=== PATIENT | female | born 1990 | race Caucasian/White ===

== ENCOUNTER 2020-08-27 23:51 | Inpatient (IN) | payer SELFPAY ==
[2020-08-28] MEDS ORDERED: Azithromycin 500 MG in Sodium Chloride 0.9% 250 ML 250 ML IVPB SCH (02:00)
--- NOTE | 2020-08-28 02:58 | HP ---
REASON FOR ADMISSION: Shortness of breath. HISTORY OF PRESENT ILLNESS: This is a -wzbj-anz female patient, who was recently diagnosed with COVID-19 on August 22. She comes back reporting shortness of breath. In the emergency room, she was found to have a pulse ox of 90% on room air. Her chest x-ray did show multifocal pneumonia. She reports that her symptoms progressed rapidly over the past 24 hours. Currently, she is in the emergency room, appears to be tired but otherwise in no acute distress. Patient does not have any past medical history. SOCIAL HISTORY: She does not smoke. Does not drink alcohol. FAMILY HISTORY: Negative for premature coronary artery disease. ALLERGIES: NO NOTE OF ANY DRUG ALLERGY. REVIEW OF SYSTEMS: All systems reviewed, except for the above mentioned, found to be negative. PHYSICAL EXAMINATION: GENERAL: Awake, alert, and oriented, does not appear in distress. VITAL SIGNS: Her blood pressure is 100/61, pulse of 100, temperature is 98.6, and saturating 96% on 4 L nasal cannula. HEENT: Head is nontraumatic and normocephalic. Pupils equal, reactive. Extraocular movements are intact. Nonicteric sclerae. Well-injected conjunctivae. Oral mucosa normal. Nasal mucosa normal. NECK: Supple. No adenopathy. No murmur. Thyroid is not palpable. Trachea is midline. No supraclavicular adenopathy. HEART: S1, S2 regular. No murmur. No gallops. No friction rubs. No displacement of PMI. LUNGS: Poor inspiratory effort. No crackles. No wheezes. No rhonchi. ABDOMEN: Bowel sounds are positive. Nontender abdomen. No hepatosplenomegaly. EXTREMITIES: No lower extremity edema. No cyanosis. NEUROLOGIC: Cranial nerves 2 through 12 within normal limits. Normal motor function. Normal sensory function. LABORATORY DATA: Blood work shows WBC of 3, hemoglobin of 12.8, and platelets of 159. Sodium 138, potassium 3.3, and bicarb of 26. CT of the chest shows round ground-glass opacities scattered throughout the lungs bilaterally. Some lobar consolidation of the bilateral lower lobes. ASSESSMENT AND PLAN: This is a 29-year-old female patient presenting with increasing shortness of breath secondary to COVID-19 pneumonia, possibly superimposed bacterial pneumonia. Patient will be admitted to our COVID unit. She will be on IV Decadron. She already received a loading dose at the ER. We will also cover her with Rocephin and azithromycin for possible community-acquired pneumonia superimposed on COVID-19 pneumonia, she did receive IV fluids in the ER. We will continue to monitor her, recheck labs in the morning. For deep venous thrombosis prophylaxis, she will be on Lovenox subcutaneously and SCDs. Job ID: [id number]
[2020-08-28 04:37] VITALS: BMI 31.9
[2020-08-28 05:46] LABS: #Lymphocytes 0.6 thou/uL (1.20-3.40); #Monocytes 0.1 thou/uL (0.11-0.59); #Neutrophils 1.3 thou/uL (1.40-6.50); %Basophils 0.6 % (0.0-1.0); %Eosinophils 0.1 % (0.0-10.0); %Lymphocytes 31.3 % (21.0-51.0); %Monocytes 2.4 % (0.0-10.0); %Neutrophils 65.6 % (42.0-75.0); Hemoglobin 11.2 g/dL (12.0-16.0); Mean Corpuscular HGB CONC 32.8 g/dL (32.0-36.0); Mean Corpuscular Hemoglobin 27.7 pg (27.0-31.0); Mean Corpuscular Volume 84.3 fL (78.0-98.0); Mean Platelet Volume 6.9 fL (7.4-10.4); Platelet Count 160 thou/uL (130-400); RBC Distribution Width 13.7 % (11.5-14.5); Red Blood Cell (RBC) Count 4.03 mill/uL (4.20-5.40)
[2020-08-28 06:05] LABS: Anion Gap 13 mmol/L (10-20); BUN (Urea Nitrogen) 5 mg/dL (7.0-18.7); Calc. Creatinine Clearance 175 mL/min (70-130); Calcium 7.8 mg/dL (7.8-10.44); Carbon Dioxide 26 mmol/L (22-29); Chloride 104 mmol/L (98-107); Estimated GFR-MDRD Greater than 90; Glucose 187 mg/dL (70-105); Potassium 3.9 mmol/L (3.5-5.1); Sodium 139 mmol/L (136-145)
--- NOTE | 2020-08-28 08:48 | CT ---
PRELIMINARY REPORT/[facility]/EMERGENCY AFTER HOURS PROCEDURE: EXAM: CTA Chest with Intravenous Contrast CLINICAL HISTORY: DYSPNEA; sob and cough, recently diagnosed with covid-19 TECHNIQUE: Axial CTA images of the chest with intravenous contrast. Three-dimensional MIP/volume rendered reform ations were performed. CONTRAST: With; ISOVUE 370, 65ML COMPARISON: None provided. FINDINGS: PULMONARY ARTERIES There is no intraluminal filling defect suspicious for PE. AORTA No thoracic aortic aneurysm or dissection. LUNGS Round groundglass stenoses are scattered throughout the lungs bilaterally. Some lobar consolidation of the bilateral lower lobes. PLEURAL SPACES No pleural effusion. No pneumothorax. HEART AND MEDIASTINUM No cardiomegaly. No significant pericardial effusion. LYMPH NODES No lymphadenopathy. BONES No focal osseous abnormality or acute fracture. CHEST WALL AND UPPER ABDOMEN Images through the upper abdomen are unremarkable. The chest wall is unremarkable. IMPRESSION: No evidence of a pulmonary embolism. Scattered round groundglass densities throughout the bilateral lung with with sublobar consolidation in the bilateral lower lobes concerning for an infectious process. The findings may represent a Covi d 19 infection in the appropriate clinical setting. ELECTRONICALLY SIGNED BY: Chas Eaton MD Aug 28, 2020 1:20:39 AM PROFESSIONAL APPLICATION DESIGNER This report is intended for review by the ordering physician only, in accordance of law. If you recei ve this report in error, please call [facility] at [phone]. FINAL REPORT CT ANGIO CHEST PERFORMED WITH IV CONTRAST ENHANCEMENT WITH 3D RECONSTRUCTIONS: Date: 08/28/2020 HISTORY: Shortness of breath. COVID-positive. FINDINGS: Bilateral multifocal infiltrates are present with mainly peripheral ground-glass infiltrates in the u pper lobes. More dense consolidation in both lower lobes. No significant mediastinal, hilar, or axillary adenopathy. Pulmonary artery opacification is good. No CT evidence for pulmonary embolus. Visualized liver parenchyma is normal. IMPRESSION: 1. No CT evidence for pulmonary embolus. 2. Extensive multifocal infiltrates with areas of dense consolidation in the lung bases. This would be compatible with COVID pneumonia. Report in agreement with the preliminary report issued by [facility]. POS: [facility] [place]
[2020-08-28] MEDS ORDERED: Enoxaparin Sodium 40 MG/0.4 ML SYRINGE SC SCH (09:00)
[2020-08-28] MEDS: Dexamethasone Sod Phosphate 6 MG in Sodium Chloride 0.9% 50 ML IVPB SCH (09:05)
[2020-08-28] MEDS: Acetaminophen 325 MG TAB PO PRN ×3 (09:17→21:48)
[2020-08-28] MEDS: Guaifenesin DM 100-10/5 ML UDCUP PO PRN ×3 (09:18→21:47)
[2020-08-28] MEDS ORDERED: Iopamidol 370 76% 100 ML VIAL ONE (10:22)
--- NOTE | 2020-08-28 12:39 | PDOC.EVN ---
Event Note - Event Note Event Note: Patient seen and examined. Breathing easily with good O2 sats on 3LNC but significant SOB and some chest pain with ambulation. Due to rapid progression of symptoms over past 24 hours before admit, I did curbside Dr. Ortiz and he recommended adding Remdesivir and full dose Lovenox. I discussed starting Remdesivir with the patient and benefits vs. risks. She consented to try this treatment. Will also continue dexamethasone. Monitor closely.
[2020-08-28 13:44] LABS: ALT (SGPT) 11 U/L (8-55); AST (SGOT) 20 U/L (5-34); Albumin 3.4 g/dL (3.5-5.0); Alkaline Phosphatase 65 U/L (40-110); Bilirubin, Direct 0.1 mg/dL (0.1-0.3); Bilirubin, Total Less than 0.2 mg/dL (0.2-1.2); Protein, Total 6.7 g/dL (6.0-8.3)
[2020-08-28] MEDS ORDERED: REMDESIVIR (EUA) 200 MG in Sodium Chloride 0.9% 250 ML 210 ML IV SCH (14:00)
[2020-08-28] MEDS ORDERED: FLU VACC QS2020-21(6MOS UP)/PF 60 MCG/0.5 ML SYRINGE IM ONE (21:00)
[2020-08-28] MEDS ORDERED: Enoxaparin Sodium 80 MG/0.8 ML SYRINGE SC SCH (21:00)
[2020-08-28] MEDS: Enoxaparin Sodium 100 MG/ML SYRINGE SC SCH (21:46)
[2020-08-28] MEDS: cefTRIAXone\\ROCEPHIN 1 GM in Sodium Chloride 0.9% 100 ML IVPB SCH (21:47)
[2020-08-29] MEDS ORDERED: Azithromycin 500 MG in Sodium Chloride 0.9% 250 ML 250 ML IVPB SCH ×2 (02:00→21:00)
[2020-08-29] MEDS: Acetaminophen 325 MG TAB PO PRN ×5 (02:32→20:15)
[2020-08-29] MEDS: Guaifenesin DM 100-10/5 ML UDCUP PO PRN ×5 (02:32→20:15)
[2020-08-29] MEDS: Enoxaparin Sodium 100 MG/ML SYRINGE SC SCH ×2 (08:03→20:10)
--- NOTE | 2020-08-29 09:10 | PDOC.HOSPP ---
- Subjective Encounter Date: 08/29/20 Encounter Time: 11:00 Subjective: Patient feeling fatigued. SOB when get up and move around, ok at rest. Fever to 100.8 this AM. - Objective Vital Signs & Weight: Vital Signs (12 hours) Temp Pulse Resp BP Pulse Ox 08/29/20 08:00 100.2 F H 98 18 98/65 94 L Weight Weight 204 lb I&O: 08/28/20 08/29/20 08/30/20 06:59 06:59 06:59 Intake Total 300 400 Balance 300 400 Result Diagrams: 08/28/20 05:36 08/28/20 05:36 Hospitalist ROS - Review of Systems Constitutional: reports: fever. denies: chills Respiratory: reports: cough, SOB with excertion. denies: shortness of breath Cardiovascular: denies: chest pain, palpitations Gastrointestinal: denies: nausea, vomiting, abdominal pain - Medication Medications: Active Medications Generic Name Dose Route Start Last Admin Trade Name Freq PRN Reason Stop Dose Admin Acetaminophen 650 mg 08/28/20 02:28 08/29/20 08:03 Acetaminophen 325 Mg Tab PO 650 mg Q4H PRN Administration Headache/Fever/Mild Pain (1-3) Enoxaparin Sodium 90 mg 08/28/20 21:00 08/29/20 08:03 Enoxaparin Sodium 100 Mg/Ml Syringe SC 90 mg 0900,2100 MARV Administration Guaifenesin/Dextromethorphan 5 ml 08/28/20 05:25 08/29/20 08:04 Guaifenesin Dm 100-10/5 Ml Udcup PO 5 ml Q4H PRN Administration Cough Ceftriaxone Sodium 1 gm/ 100 mls @ 200 mls/hr 08/28/20 21:00 08/28/20 21:47 Sodium Chloride IVPB 100 mls Q24HR MARV Administration Azithromycin 500 mg/ Sodium 250 mls @ 250 mls/hr 08/29/20 02:00 08/29/20 01:43 Chloride IVPB 250 mls Q24HR MARV Administration Dexamethasone Sodium Phosphate 51.5 mls @ 101.756 mls/hr 08/28/20 09:00 08/28/20 09:05 6 mg/ Sodium Chloride IVPB 51.5 mls DAILY MARV Administration - Exam General Appearance: NAD, awake alert ENT: moist mucosa Heart: RRR, no murmur, no gallops, no rubs Respiratory: no wheezes, no rales, no ronchi, no tachypnea Gastrointestinal: soft, non-tender, non-distended, normal bowel sounds Psychiatric: normal affect, normal behavior, A&O x 3 Hosp A/P (1) Pneumonia due to COVID-19 virus Code(s): U07.1 - COVID-19; J12.89 - OTHER VIRAL PNEUMONIA Status: Acute (2) Acute respiratory failure with hypoxia Code(s): J96.01 - ACUTE RESPIRATORY FAILURE WITH HYPOXIA Status: Acute - Plan Patient with Covid-19 pneumonia. Diagnosed one week ago, with worsened symptoms over 24 hour before admission. Now requiring 2-3L NC O2 and dyspnea with exertion. On Rocephin, Azithromycin, and Dexamethasone since 08/28/2020. Curbsided Dr. Ortiz and started Remdesivir and full dose Lovenox. DVT proph: Lovenox GI Proph: Pepcid BID
[2020-08-29] MEDS: Dexamethasone Sod Phosphate 6 MG in Sodium Chloride 0.9% 50 ML IVPB SCH (09:29)
[2020-08-29] MEDS: REMDESIVIR (EUA) 100 MG in Sodium Chloride 0.9% 250 ML 230 ML IV SCH (15:34)
[2020-08-29] MEDS: cefTRIAXone\\ROCEPHIN 1 GM in Sodium Chloride 0.9% 100 ML IVPB SCH (20:09)
[2020-08-29] MEDS: Famotidine 20 MG TAB PO SCH (20:10)
[2020-08-30] MEDS: Acetaminophen 325 MG TAB PO PRN ×2 (03:25→20:10)
[2020-08-30] MEDS: Guaifenesin DM 100-10/5 ML UDCUP PO PRN ×3 (03:26→20:09)
[2020-08-30 05:24] LABS: #Lymphocytes 1.8 thou/uL (1.20-3.40); #Monocytes 0.6 thou/uL (0.11-0.59); %Eosinophils 0.1 % (0.0-10.0); %Lymphocytes 28.1 % (21.0-51.0); %Monocytes 9.2 % (0.0-10.0); %Neutrophils 62.6 % (42.0-75.0); Hemoglobin 11.1 g/dL (12.0-16.0); Mean Corpuscular HGB CONC 32.7 g/dL (32.0-36.0); Mean Corpuscular Hemoglobin 27.8 pg (27.0-31.0); Mean Platelet Volume 6.9 fL (7.4-10.4); Platelet Count 246 thou/uL (130-400); Red Blood Cell (RBC) Count 3.99 mill/uL (4.20-5.40); White Blood Cell (WBC) Count 6.4 thou/uL (4.8-10.8)
[2020-08-30 05:45] LABS: Anion Gap 12 mmol/L (10-20); BUN (Urea Nitrogen) 12 mg/dL (7.0-18.7); Calc. Creatinine Clearance 207 mL/min (70-130); Calcium 7.9 mg/dL (7.8-10.44); Carbon Dioxide 27 mmol/L (22-29); Chloride 105 mmol/L (98-107); Estimated GFR-MDRD Greater than 90; Glucose 88 mg/dL (70-105); Potassium 3.8 mmol/L (3.5-5.1); Sodium 140 mmol/L (136-145)
[2020-08-30 05:46] LABS: ALT (SGPT) 10 U/L (8-55); AST (SGOT) 17 U/L (5-34); Albumin 3.2 g/dL (3.5-5.0); Alkaline Phosphatase 59 U/L (40-110); Bilirubin, Direct 0.1 mg/dL (0.1-0.3); Bilirubin, Total Less than 0.2 mg/dL (0.2-1.2); Protein, Total 6.4 g/dL (6.0-8.3)
[2020-08-30] MEDS: Enoxaparin Sodium 100 MG/ML SYRINGE SC SCH (08:40)
[2020-08-30] MEDS: Dexamethasone Sod Phosphate 6 MG in Sodium Chloride 0.9% 50 ML IVPB SCH (08:40)
[2020-08-30] MEDS: Famotidine 20 MG TAB PO SCH ×2 (08:41→20:28)
--- NOTE | 2020-08-30 12:50 | PDOC.HOSPP ---
- Subjective Encounter Date: 08/30/20 Encounter Time: 08:00 Subjective: breathing better, is on nasal canula no nausea or diarrhea now - Objective Vital Signs & Weight: Vital Signs (12 hours) Temp Pulse Resp BP Pulse Ox 08/30/20 12:00 98.5 F 78 18 97/66 96 08/30/20 09:13 97 08/30/20 09:10 97.6 F 78 18 94/60 97 08/30/20 03:35 98.9 F 88 20 99/66 99 Weight Weight 204 lb I&O: 08/29/20 08/30/20 08/31/20 06:59 06:59 06:59 Intake Total 400 800 Balance 400 800 Result Diagrams: 08/30/20 05:13 08/30/20 05:13 Hospitalist ROS - Medication Medications: Active Medications Generic Name Dose Route Start Last Admin Trade Name Freq PRN Reason Stop Dose Admin Acetaminophen 650 mg 08/28/20 02:28 08/30/20 03:25 Acetaminophen 325 Mg Tab PO 650 mg Q4H PRN Administration Headache/Fever/Mild Pain (1-3) Enoxaparin Sodium 90 mg 08/28/20 21:00 08/30/20 08:40 Enoxaparin Sodium 100 Mg/Ml Syringe SC 90 mg 0900,2100 MARV Administration Famotidine 20 mg 08/29/20 21:00 08/30/20 08:41 Famotidine 20 Mg Tab PO 20 mg BID MARV Administration Guaifenesin/Dextromethorphan 5 ml 08/28/20 05:25 08/30/20 03:26 Guaifenesin Dm 100-10/5 Ml Udcup PO 5 ml Q4H PRN Administration Cough Dexamethasone Sodium Phosphate 51.5 mls @ 101.756 mls/hr 08/28/20 09:00 03/14 08:40 6 mg/ Sodium Chloride IVPB 51.5 mls DAILY MARV Administration Remdesivir 100 mg/ Sodium 250 mls @ 250 mls/hr 08/29/20 14:00 08/29/20 15:34 Chloride IV 09/01/20 14:59 250 mls Q24H MARV Administration Sodium Chloride 10 ml 08/29/20 21:00 08/30/20 08:41 Flush - Normal Saline 10 Ml Syringe IVF 10 ml Q12HR MARV Administration - Exam General Appearance: awake alert Eye: PERRL, anicteric sclera ENT: no oropharyngeal lesions, moist mucosa Neck: supple, no JVD Heart: RRR, no murmur Respiratory: no wheezes, no rales Gastrointestinal: soft, non-tender, non-distended, normal bowel sounds Extremities: no cyanosis, no edema Neurological: cranial nerve grossly intact, no focal deficits Psychiatric: normal affect, A&O x 3 Hosp A/P (1) Acute respiratory failure with hypoxia Code(s): J96.01 - ACUTE RESPIRATORY FAILURE WITH HYPOXIA Status: Acute (2) Pneumonia due to COVID-19 virus Code(s): U07.1 - COVID-19; J12.89 - OTHER VIRAL PNEUMONIA Status: Acute (3) Obesity (BMI 30.0-34.9) Code(s): E66.9 - OBESITY, UNSPECIFIED Status: Chronic - Plan is on nasal canula oxygen, doing well continue dexamethasone, remdesivir will reduce lovenox to 40mg q12h to ambulate in room as tolerated
[2020-08-30] MEDS: REMDESIVIR (EUA) 100 MG in Sodium Chloride 0.9% 250 ML 230 ML IV SCH (14:13)
[2020-08-30] MEDS: Enoxaparin Sodium 40 MG/0.4 ML SYRINGE SC SCH (20:27)
[2020-08-31 06:45] LABS: ALT (SGPT) 12 U/L (8-55); AST (SGOT) 16 U/L (5-34); Albumin 3.2 g/dL (3.5-5.0); Alkaline Phosphatase 62 U/L (40-110); Bilirubin, Direct 0.1 mg/dL (0.1-0.3); Bilirubin, Total 0.2 mg/dL (0.2-1.2); Protein, Total 6.5 g/dL (6.0-8.3)
[2020-08-31] MEDS: Enoxaparin Sodium 40 MG/0.4 ML SYRINGE SC SCH ×2 (08:59→22:15)
[2020-08-31] MEDS: Famotidine 20 MG TAB PO SCH ×2 (08:59→22:15)
[2020-08-31] MEDS: Dexamethasone Sod Phosphate 6 MG in Sodium Chloride 0.9% 50 ML IVPB SCH (09:39)
--- NOTE | 2020-08-31 14:07 | PDOC.HOSPP ---
- Subjective Encounter Date: 08/31/20 Encounter Time: 08:00 Subjective: no sob, feels better is on nasal canula, is ambulating in the room with extended nasal canula tubing - Objective Vital Signs & Weight: Vital Signs (12 hours) Temp Pulse Resp BP Pulse Ox 08/31/20 09:00 98.3 F 69 20 106/69 95 08/31/20 05:00 98.1 F 75 18 99/67 96 Weight Weight 204 lb I&O: 08/30/20 08/31/20 09/01/20 06:59 06:59 06:59 Intake Total 800 370 Balance 800 370 Result Diagrams: 08/30/20 05:13 08/30/20 05:13 Hospitalist ROS - Medication Medications: Active Medications Generic Name Dose Route Start Last Admin Trade Name Freq PRN Reason Stop Dose Admin Acetaminophen 650 mg 08/28/20 02:28 08/30/20 20:10 Acetaminophen 325 Mg Tab PO 650 mg Q4H PRN Administration Headache/Fever/Mild Pain (1-3) Enoxaparin Sodium 40 mg 08/30/20 21:00 08/31/20 08:59 Enoxaparin Sodium 40 Mg/0.4 Ml Syringe SC 40 mg 0900,2100 MARV Administration Famotidine 20 mg 08/29/20 21:00 08/31/20 08:59 Famotidine 20 Mg Tab PO 20 mg BID MARV Administration Guaifenesin/Dextromethorphan 5 ml 08/28/20 05:25 08/30/20 20:09 Guaifenesin Dm 100-10/5 Ml Udcup PO 5 ml Q4H PRN Administration Cough Dexamethasone Sodium Phosphate 51.5 mls @ 101.756 mls/hr 08/28/20 09:00 08/31/20 09:39 6 mg/ Sodium Chloride IVPB 51.5 mls DAILY MARV Administration Remdesivir 100 mg/ Sodium 250 mls @ 250 mls/hr 08/29/20 14:00 08/30/20 14:13 Chloride IV 09/01/20 14:59 250 mls Q24H MARV Administration Sodium Chloride 10 ml 08/29/20 21:00 08/31/20 08:59 Flush - Normal Saline 10 Ml Syringe IVF 10 ml Q12HR MARV Administration Sodium Chloride 10 ml 08/29/20 09:30 08/30/20 14:13 Flush - Normal Saline 10 Ml Syringe IVF 10 ml PRN PRN Administration Saline Flush - Exam General Appearance: awake alert Eye: PERRL, anicteric sclera ENT: no oropharyngeal lesions, moist mucosa Neck: supple, no JVD Heart: RRR, no murmur Respiratory: no wheezes, no rales Gastrointestinal: soft, non-tender, non-distended, normal bowel sounds Extremities: no cyanosis, no edema Neurological: cranial nerve grossly intact, no focal deficits Psychiatric: normal affect, A&O x 3 Hosp A/P (1) Acute respiratory failure with hypoxia Code(s): J96.01 - ACUTE RESPIRATORY FAILURE WITH HYPOXIA Status: Acute (2) Pneumonia due to COVID-19 virus Code(s): U07.1 - COVID-19; J12.89 - OTHER VIRAL PNEUMONIA Status: Acute (3) Obesity (BMI 30.0-34.9) Code(s): E66.9 - OBESITY, UNSPECIFIED Status: Chronic - Plan is on nasal canula oxygen, doing well continue dexamethasone, remdesivir lovenox 40mg q12h to ambulate in room as tolerated cxr in am
[2020-08-31] MEDS: REMDESIVIR (EUA) 100 MG in Sodium Chloride 0.9% 250 ML 230 ML IV SCH (15:16)
--- NOTE | 2020-08-31 15:39 | RAD ---
PORTABLE CHEST: 08/31/20 HISTORY: COVID pneumonia. COMPARISON: 08/27/20 There continues to be hazy ground glass type infiltrates in the periphery of both lungs. Findings are more pronounced in the right lower lobe and left mid lung field. IMPRESSION: Persistent hazy ground glass infiltrates consistent with COVID pneumonia. POS: [facility]
[2020-09-01 06:17] LABS: ALT (SGPT) 17 U/L (8-55); AST (SGOT) 24 U/L (5-34); Albumin 3.2 g/dL (3.5-5.0); Alkaline Phosphatase 67 U/L (40-110); Bilirubin, Direct 0.1 mg/dL (0.1-0.3); Bilirubin, Total 0.2 mg/dL (0.2-1.2); Protein, Total 6.6 g/dL (6.0-8.3)
[2020-09-01] MEDS: Dexamethasone Sod Phosphate 6 MG in Sodium Chloride 0.9% 50 ML IVPB SCH (08:54)
[2020-09-01] MEDS: Enoxaparin Sodium 40 MG/0.4 ML SYRINGE SC SCH ×2 (08:54→20:08)
[2020-09-01] MEDS: Famotidine 20 MG TAB PO SCH ×2 (08:54→20:08)
[2020-09-01] MEDS: REMDESIVIR (EUA) 100 MG in Sodium Chloride 0.9% 250 ML 230 ML IV SCH (14:46)
--- NOTE | 2020-09-01 18:49 | PDOC.HOSPP ---
- Subjective Encounter Date: 09/01/20 Encounter Time: 10:30 Subjective: Patient seen and examined for COVID-19 pneumonia with respiratory failure. Symptomatically feeling much better. Has some dry cough. - Objective Vital Signs & Weight: Vital Signs (12 hours) Temp Pulse Resp BP BP Pulse Ox 09/01/20 16:00 98.2 F 58 L 16 93/54 L 96 09/01/20 12:19 98.6 F 69 18 103/71 98 09/01/20 09:00 98.0 F 60 16 95/62 95 09/01/20 08:00 95 Weight Weight 204 lb I&O: 08/31/20 09/01/20 09/02/20 06:59 06:59 06:59 Intake Total 370 1400 1301 Balance 370 1400 1301 Result Diagrams: 09/02/20 05:10 09/02/20 05:10 Radiology Reviewed by me: Yes (Chest x-raybilateral infiltrate) Hospitalist ROS - Review of Systems Cardiovascular: denies: chest pain, palpitations, orthopnea, paroxysmal noc. dyspnea, edema, light headedness, other Gastrointestinal: denies: nausea, vomiting, abdominal pain, diarrhea, constipation, melena, hematochezia, other - Medication Medications: Active Medications Generic Name Dose Route Start Last Admin Trade Name Freq PRN Reason Stop Dose Admin Acetaminophen 650 mg 08/28/20 02:28 08/30/20 20:10 Acetaminophen 325 Mg Tab PO 650 mg Q4H PRN Administration Headache/Fever/Mild Pain (1-3) Enoxaparin Sodium 40 mg 08/30/20 21:00 09/01/20 08:54 Enoxaparin Sodium 40 Mg/0.4 Ml Syringe SC 40 mg 0900,2100 MARV Administration Famotidine 20 mg 08/29/20 21:00 09/01/20 08:54 Famotidine 20 Mg Tab PO 20 mg BID MARV Administration Guaifenesin/Dextromethorphan 5 ml 08/28/20 05:25 08/30/20 20:09 Guaifenesin Dm 100-10/5 Ml Udcup PO 5 ml Q4H PRN Administration Cough Dexamethasone Sodium Phosphate 51.5 mls @ 101.756 mls/hr 08/28/20 09:00 05/14 08:54 6 mg/ Sodium Chloride IVPB 51.5 mls DAILY MARV Administration Sodium Chloride 10 ml 08/29/20 21:00 09/01/20 08:54 Flush - Normal Saline 10 Ml Syringe IVF 10 ml Q12HR MARV Administration Sodium Chloride 10 ml 08/29/20 09:30 08/30/20 14:13 Flush - Normal Saline 10 Ml Syringe IVF 10 ml PRN PRN Administration Saline Flush - Exam General Appearance: ill appearing Neck: supple, no JVD Heart: RRR Respiratory: no tachypnea, rales, rhonchi Psychiatric: normal affect, A&O x 3 Hosp A/P - Plan DVT proph w/SCDs Acute hypoxic respiratory failure due to COVID-19 pneumonia Obesity with a BMI 32 Leukopenia due to COVID-19 Elevated inflammatory markers Chronic anemia probably due to nutritional deficiency Plan: We will arrange for home oxygen. Continue dexamethasone for 5 more days. Patient completed remdesivir. Will start Eliquis 2.5 mg twice daily. Patient understands the risk associated with anticoagulation. We will also continue Pepcid while on steroids. Patient is stable for discharge once oxygen is arranged
[2020-09-02 05:40] LABS: #Lymphocytes 2.7 thou/uL (1.20-3.40); #Monocytes 0.9 thou/uL (0.11-0.59); #Neutrophils 4.4 thou/uL (1.40-6.50); %Basophils 0.1 % (0.0-1.0); %Eosinophils 0.3 % (0.0-10.0); %Lymphocytes 33.5 % (21.0-51.0); %Monocytes 11.6 % (0.0-10.0); %Neutrophils 54.6 % (42.0-75.0); Hemoglobin 12.3 g/dL (12.0-16.0); Mean Corpuscular HGB CONC 32.4 g/dL (32.0-36.0); Mean Corpuscular Hemoglobin 27.5 pg (27.0-31.0); Mean Corpuscular Volume 84.9 fL (78.0-98.0); Mean Platelet Volume 6.9 fL (7.4-10.4); Platelet Count 406 thou/uL (130-400); RBC Distribution Width 13.6 % (11.5-14.5); Red Blood Cell (RBC) Count 4.48 mill/uL (4.20-5.40)
[2020-09-02 06:04] LABS: ALT (SGPT) 25 U/L (8-55); AST (SGOT) 28 U/L (5-34); Albumin 3.3 g/dL (3.5-5.0); Alkaline Phosphatase 68 U/L (40-110); Anion Gap 14 mmol/L (10-20); BUN (Urea Nitrogen) 14 mg/dL (7.0-18.7); Bilirubin, Total 0.3 mg/dL (0.2-1.2); Calc. Creatinine Clearance 201 mL/min (70-130); Calcium 8.5 mg/dL (7.8-10.44); Carbon Dioxide 26 mmol/L (22-29); Chloride 103 mmol/L (98-107); Estimated GFR-MDRD Greater than 90; Globulin 3.5 g/dL (2.4-3.5); Glucose 85 mg/dL (70-105); Potassium 3.8 mmol/L (3.5-5.1); Protein, Total 6.8 g/dL (6.0-8.3); Sodium 139 mmol/L (136-145)
[2020-09-02] MEDS: Enoxaparin Sodium 40 MG/0.4 ML SYRINGE SC SCH (09:52)
[2020-09-02] MEDS: Dexamethasone Sod Phosphate 6 MG in Sodium Chloride 0.9% 50 ML IVPB SCH (09:52)
[2020-09-02] MEDS: Famotidine 20 MG TAB PO SCH (09:53)
[2020-09-02 16:59] VITALS: BP 93/66; TEMP 98.2
--- NOTE | 2020-09-02 17:30 | PDOC.DS.DS ---
Provider - Provider Date of Admission: 08/28/20 01:47 Date of Discharge: 09/02/20 Admitting Provider: Marcia Vences MD Consultations: None Primary Care Physician: Ai High MD Course - Hospital Course Hospital Course: Patient is 29-year-old female with recent diagnosis of COVID-19 presented to the hospital on September 14 with shortness of breath. Chest x-ray was consistent with multifocal pneumonia. CT angiogram of the chest was consistent with extensive multifocal infiltrates with areas of dense consolidation in the lung bases compatible with COVID-19 pneumonia. Patient was monitored on the medical floor. She was treated with dexamethasone and remdesivir. She was also placed on Lovenox for DVT prophylaxis. She had a repeat chest x-ray on 08/31 that showed persistent hazy groundglass infiltrates consistent with COVID-19 pneumonia. Patient is saturating 95% on room air however. She was advised to follow-up with infectious disease Dr. Ortiz as outpatient. desaturates on ambulation. For this reason home oxygen has been arranged. She will continue on dexamethasone for next 5 days. Eliquis has been started for DVT prophylaxis. Patient understands the risks associated with anticoagulation. Final diagnosis: Acute hypoxic respiratory failure due to COVID-19 pneumonia Obesity BMI 32 Elevated inflammatory markers Chronic anemia probably due to nutritional deficiency Leukopenia probably due to COVID-19 Resuscitation Status: 08/28/20 02:28 Resuscitation Status Routine Resuscitation Status: FULL: Full Resuscitation - Labs Lab Results: 09/02/20 05:10 09/02/20 05:10 Abnormal Lab Results - Last 48 hrs 09/01/20 05:08: Albumin 3.2 L 09/01/20 05:08: C-Reactive Protein 2.87 H 09/02/20 05:10: C-Reactive Protein 1.50 H, Albumin 3.3 L, Albumin/Globulin Ratio 0.9 L 09/02/20 05:10: Plt Count 406 H, MPV 6.9 L, Monocytes % 11.6 H, Monocytes # 0.9 H - Physical Exam Vitals: Vital Signs (12 hours) Temp Pulse Resp BP Pulse Ox 09/02/20 16:40 98.2 F 75 18 93/66 96 09/02/20 08:00 97.9 F 87 18 90/63 96 Weight Weight 204 lb Physical Exam: The patient was seen and examined on the day of discharge. Plan - Discharge Medications Prescriptions: Dexamethasone 6 mg PO DAILY #5 tablet Apixaban [Eliquis] 2.5 mg PO BID #28 tab Famotidine [Pepcid] 20 mg PO BID #20 tab Home Medications: Medication Instructions Recorded Confirmed Type Apixaban [Eliquis] 2.5 mg PO BID #28 tab 09/01/20 Rx Dexamethasone 6 mg PO DAILY #5 tablet 09/01/20 Rx Famotidine [Pepcid] 20 mg PO BID #20 tab 09/01/20 Rx Allergies: No Known Drug Allergies Allergy (Verified 08/28/20 05:07) - Discharge Instructions Discharge Instructions:: Pulse oximeter - Follow up Plan Referrals: Galen Ortiz MD [Active] - Ai High MD [Primary Care Provider] - 7 Days Disposition: HOME Quality - Care Measures CORE MEASURES:: N/A
--- NOTE | 2020-09-04 04:01 | PQF ---
CLINICAL DOCUMENTATION CLARIFICATION FORM: Dear : Joseluis Sosa Date / Time: 09/04/2020400 Please exercise your independent, professional judgment in responding to the clarification form. Clinical indicators are provided on the bottom of this form for your review Please check appropriate box(es): [ ] Sepsis due to Covid 19 Pneumonia [ x ] Severe sepsis Covid 19 Pneumonia with Acute Respiratory Failure [ ] Septic Shock [ ] Localized infection without sepsis [ ] Other diagnosis [ ] Unable to determine In addition, please specify: Present on Admission (POA): [ x ] Yes [ ] No [ ] Unable to determine Physician Signature: Date/Time: For continuity of documentation, please document condition throughout progress notes and discharge summary. Thank You. To be completed by CDI/Coding staff for physician review: Present Clinical Indicators - Signs / Symptoms / Labs Results and Location in Medical Record [X] WBC 2.0, Plt count 160, Neutrophils 1.3 Laboratory 08/28 [X] CT chest Impression: Extensive multifocal infiltrates with areas of dense consolidation in the lung bases Imaging Dr Arnett 08/28 [X] BP 100/59, Pulse 101, Resp 28 Temp 98.6 Vital signs 08/28 [X] SIRS scoring: Pt did meet criteria ED notes p2 08/28 [X] Covid Pneumonia H&P p2 08/28 Dr Vences [X] Acute respiratory failure HPN p3 08/29 Dr Sawyer Present Risk Factors Results and Location in Medical Record [X] Covid Pneumonia H&P p2 08/28 Dr Vences [X] Obesity H&P p2 08/28 Dr Vences Present Treatments Results and Location in Medical Record [X] IVF NS 1L JAN 03 [X] IV Remdesivir 200 mg JAN 03 [X] IV Ceftriaxone 1 gm JAN 03 [X] IV Azithromycin 500 mg JAN 03 [X] CT chest Imaging Dr Arnett 08/28 [X] Oxygen 4 L Respiratory Panel 08/28 [X] Isolation H&P p2 08/28 Dr Vences [X] Covid unit H&P p2 08/28 Dr Vences CDS/Field Identification Specialist Signature: Marcelina Cui Phone #: ext [phone] Date/Time: 09/04/2020 0401 This is a permanent part of the Medical Record [facility]
== END 2020-09-02 16:35 | disposition home or self-care (01) | DRG 871 ==
LOC: ERS 23:51 → T4-A 08-28 01:47
PROVIDERS: ADMIT Internal Medicine; ATTEND Internal Medicine
PROC: XW033E5 Introduction of Remdesivir Anti-infective into Peripheral Vein, Percutaneous Approach, New Technology Group 5 (ICD-10-PCS; principal; 2020-08-28)
PROC: 8E0ZXY6 Isolation (ICD-10-PCS; 2020-08-28)
PROC: 3E02340 Introduction of Influenza Vaccine into Muscle, Percutaneous Approach (ICD-10-PCS; 2020-08-28)
DX: A41.89 Other specified sepsis (principal); U07.1 COVID-19; J12.89 Other viral pneumonia; J96.01 Acute respiratory failure with hypoxia; R65.20 Severe sepsis without septic shock; E66.9 Obesity, unspecified; D53.9 Nutritional anemia, unspecified; R79.89 Other specified abnormal findings of blood chemistry; D72.818 Other decreased white blood cell count; Z68.32 Body mass index [BMI] 32.0-32.9, adult; Z23 Encounter for immunization
CPT/HCPCS: 36415; 71045; 71275; 80048; 80053; 80076; 82728; 85025; 85379; 86140; 96365; J0456; J0696; J1650; J3490; J7050; Q9967